=== PATIENT | female | born 1955 | race Caucasian/White ===

== ENCOUNTER 2020-01-04 13:22 | Emergency (ER) | payer OTHER, MEDICARE ==
[~2020-01-04] VITALS: Ht 172.7 cm; Wt 73.6 kg
[2020-01-04 13:25] VITALS: BP 110/92
[2020-01-04] MEDS ORDERED: LIDOcaine 1% 30ml preserv. free vial IJ ONE (13:50)
== END 2020-01-04 15:24 | disposition home or self-care (01) ==
LOC: ER 13:22
DX: S61.211A Laceration without foreign body of left index finger without damage to nail, initial encounter (principal); S61.213A Laceration without foreign body of left middle finger without damage to nail, initial encounter; S61.215A Laceration without foreign body of left ring finger without damage to nail, initial encounter; R20.0 Anesthesia of skin; R20.2 Paresthesia of skin; Z98.890 Other specified postprocedural states; Z88.5 Allergy status to narcotic agent; Z88.6 Allergy status to analgesic agent; Z94.0 Kidney transplant status; W26.8XXA Contact with other sharp object(s), not elsewhere classified, initial encounter; Y93.89 Activity, other specified; Y92.89 Other specified places as the place of occurrence of the external cause; Y99.8 Other external cause status
CPT/HCPCS: 12002; 73130; 99283

== ENCOUNTER 2020-01-14 08:28 | Emergency (ER) | payer MEDICARE, OTHER ==
[~2020-01-14] VITALS: Ht 172.7 cm; Wt 73.6 kg
== END 2020-01-14 09:47 | disposition home or self-care (01) ==
LOC: ER 08:29
DX: S61.211A Laceration without foreign body of left index finger without damage to nail, initial encounter (principal); S61.215A Laceration without foreign body of left ring finger without damage to nail, initial encounter; S61.213A Laceration without foreign body of left middle finger without damage to nail, initial encounter; Z48.02 Encounter for removal of sutures; Z88.5 Allergy status to narcotic agent
CPT/HCPCS: 29130; 99281; 99283

== ENCOUNTER 2021-11-10 07:49 | Inpatient (IN) | payer MEDICARE, OTHER ==
[~2021-11-10] VITALS: Ht 172.7 cm; Wt 81.4 kg
[2021-11-10] MEDS ORDERED: ondansetron/PF 4mg/2ml inj IV ONE (08:50)
[2021-11-10] MEDS ORDERED: piperacillin/tazo 3.375gm/50ml 50 ML IV ONE (08:50)
[2021-11-10] MEDS: morphine 4 MG/ML inj SYRINge IV PRN ×2 (09:14→16:55)
[2021-11-10 09:26] LABS: BASOPHILS % (AUTO) 0.3 % (0-1); EOSINOPHILS # (AUTO) 0.1 X10'3 (0-0.9); EOSINOPHILS % (AUTO) 0.6 % (0-6); HEMATOCRIT 41.3 % (35.0-45.0); HEMOGLOBIN 14.2 g/dl (12.0-16.0); LYMPHOCYTES # (AUTO) 1.6 X10'3 (1.1-4.8); LYMPHOCYTES % (AUTO) 18.2 % (21-51); MEAN CORPUSCULAR HEMOGLOBIN 30.6 PG (27.0-31.0); MEAN CORPUSCULAR HGB CONC 34.4 g/dL (33.0-36.5); MEAN PLATELET VOLUME 9.1 FL (7.4-10.4); MONOCYTES # (AUTO) 0.9 X10'3 (0-0.9); MONOCYTES % (AUTO) 10.1 % (2-12); NEUTROPHILS # (AUTO) 6.3 X10'3 (1.8-7.7); NEUTROPHILS % (AUTO) 70.8 % (42-75); PLATELET COUNT 263 X10'3 (140-440); RED BLOOD COUNT 4.64 X10'6 (4.20-5.60); RED CELL DISTRIBUTION WIDTH 13.3 % (11.5-14.5); WHITE BLOOD COUNT 8.9 X10'3 (4.5-11.0)
[2021-11-10 09:39] LABS: ALANINE AMINOTRANSFERASE 32 U/L (12-78); ALBUMIN 3.9 G/DL (3.4-5.0); ALBUMIN/GLOBULIN RATIO 0.9 (1.1-1.5); ALKALINE PHOSPHATASE 75 IU/L (46-116); ANION GAP 9 (8-16); ASPARTATE AMINO TRANSFERASE 22 U/L (10-37); BILIRUBIN,TOTAL 0.5 MG/DL (0.1-1.0); BLOOD UREA NITROGEN 21 MG/DL (7-18); BUN/CREATININE RATIO 20.6 (6.6-38.0); CHLORIDE 101 MMOL/L (99-107); CREATININE 1.02 MG/DL (0.40-0.90); GLUCOSE 104 MG/DL (70-104); POTASSIUM 3.6 MMOL/L (3.5-5.1); SODIUM 138 MMOL/L (135-145); TOTAL CARBON DIOXIDE 27.9 MMOL/L (24-32); TOTAL PROTEIN 8.1 G/DL (6.4-8.2); eGFR 54 ML/MIN
[2021-11-10] MEDS ORDERED: diphenhydrAMINE 25mg capsule PO PRN (12:55)
[2021-11-10] MEDS: normal saline 1000ml 1,000 ML IV SCH ×2 (12:55→23:01)
[2021-11-10] MEDS ORDERED: magnesium 4gm in 100ml NS 100 ML IV PRN (12:55)
[2021-11-10] MEDS ORDERED: bisacodyl 10mg suppository rectal RC PRN (12:55)
[2021-11-10] MEDS ORDERED: acetaminophen 325mg tablet PO PRN ×2 (12:55)
[2021-11-10] MEDS ORDERED: potassium CL 10mEq/100ml bag 100 ML IV PRN (12:55)
[2021-11-10] MEDS ORDERED: HYDROcodone/acetaminophen 5mg/325mg tablet PO PRN (12:55)
[2021-11-10] MEDS ORDERED: morphine 2 MG/ML inj. syringe IV PRN ×2 (12:55)
[2021-11-10] MEDS ORDERED: magnesium Cl slow-release 64mg tablet PO PRN (12:55)
[2021-11-10] MEDS ORDERED: acetaminophen 650mg rectal suppository RC PRN (12:55)
[2021-11-10] MEDS ORDERED: potassium Cl 20 mEq SR tablet PO PRN ×2 (12:55)
[2021-11-10] MEDS ORDERED: magnesium 2GM in 50ml NS 50 ML IV PRN (12:55)
[2021-11-10] MEDS ORDERED: mag hydrox/Alum hydrox/simeth 30ml oral suspension PO PRN (12:55)
[2021-11-10] MEDS ORDERED: magnesium hydroxide 30ml (MOM) UD suspension PO PRN (12:55)
[2021-11-10] MEDS ORDERED: AMOX1TAB15 PO (13:18)
[2021-11-10] MEDS ORDERED: CLIN300C71 PO (13:18)
[2021-11-10] MEDS ORDERED: HYDR25TA5 PO (13:18)
[2021-11-10] MEDS ORDERED: vancomycin/NS 1 GM ADD-VANTAGE 250 ML IV ONE (13:20)
[2021-11-10 14:03] LABS: HEMOGLOBIN A1C 5.6 % (4.5-6.2)
[2021-11-10] MEDS: piperacillin/tazo 3.375gm/50ml 50 ML IV SCH ×2 (16:24→23:22)
[2021-11-10] MEDS: ondansetron/PF 4mg/2ml inj IV PRN (16:28)
[2021-11-10 16:41] LABS: CLARITY,URINE CLEAR (Clear); COLOR,URINE YELLOW (Yellow); GLUCOSE, URINE NEGATIVE (Neg); KETONES,URINE NEGATIVE (Neg); LEUKOCYTE ESTERASE ,URINE NEGATIVE (Neg); NITRITES, URINE NEGATIVE (Neg); OCCULT BLOOD,URINE MODERATE (Neg); PROTEIN,URINE NEGATIVE (Neg); UROBILINOGEN,URINE 0.2 E.U/dL (0.2-1.0)
[2021-11-10 16:44] LABS: UA COLLECTION TYPE VOIDED
[2021-11-10 16:53] LABS: BACTERIA,URINE NONE SEEN /HPF (Neg); SQUAMOUS EPITHELIAL CELL,UR FEW /LPF (FEW); WBC,URINE NONE SEEN /HPF (0-4)
--- NOTE | 2021-11-10 17:27 | NUR ---
patient arrived via gurney, VS stable, alert and oriented, call light in reach, iv fluids running as ordered
[2021-11-10 17:30] VITALS: BP 136/63
[2021-11-10 18:00] VITALS: BP 155/66
--- NOTE | 2021-11-10 18:34 | NUR ---
Patient in room [facility]. I have received report from QING MELO and had the opportunity to ask questions and assume patient care.
[2021-11-10] MEDS: K and/or MAG REPLACEMENT MC SCH (19:33)
[2021-11-10] MEDS: docusate sod 100mg capsule PO SCH (20:27)
[2021-11-10] MEDS: heparin, porcine 5000 units/ml vial SQ SCH (20:32)
[2021-11-10 20:59] VITALS: BP 155/66
[2021-11-11] VITALS: BP 131/78
[2021-11-11] MEDS: HYDROcodone/acetaminophen 10/325mg tab PO PRN ×2 (00:09→09:02)
[2021-11-11] MEDS: VANCOMYCIN 1GM/200ML IVPB 200 ML IV SCH ×2 (01:35→13:23)
--- NOTE | 2021-11-11 06:27 | NUR ---
Problems reprioritized. Patient report given, questions answered & plan of care reviewed with CYNDY MELO.
[2021-11-11 06:42] LABS: BASOPHILS % (AUTO) 0.2 % (0-1); EOSINOPHILS % (AUTO) 0.2 % (0-6); HEMOGLOBIN 12.5 g/dl (12.0-16.0); LYMPHOCYTES # (AUTO) 1.1 X10'3 (1.1-4.8); LYMPHOCYTES % (AUTO) 13.2 % (21-51); MEAN CORPUSCULAR HGB CONC 34.6 g/dL (33.0-36.5); MEAN CORPUSCULAR VOLUME 89.4 FL (78-98); MEAN PLATELET VOLUME 9.3 FL (7.4-10.4); MONOCYTES # (AUTO) 0.7 X10'3 (0-0.9); MONOCYTES % (AUTO) 8.2 % (2-12); NEUTROPHILS # (AUTO) 6.6 X10'3 (1.8-7.7); NEUTROPHILS % (AUTO) 78.2 % (42-75); PLATELET COUNT 227 X10'3 (140-440); RED BLOOD COUNT 4.03 X10'6 (4.20-5.60); RED CELL DISTRIBUTION WIDTH 12.9 % (11.5-14.5); WHITE BLOOD COUNT 8.5 X10'3 (4.5-11.0)
--- NOTE | 2021-11-11 06:43 | NUR ---
Patient in room [facility] 358B. I have received report from KAMERON FALCON and had the opportunity to ask questions and assume patient care.
[2021-11-11 07:00] VITALS: BP 125/67
[2021-11-11 07:28] LABS: ALANINE AMINOTRANSFERASE 36 U/L (12-78); ALBUMIN 3.2 G/DL (3.4-5.0); ALBUMIN/GLOBULIN RATIO 0.9 (1.1-1.5); ALKALINE PHOSPHATASE 64 IU/L (46-116); ANION GAP 8 (8-16); ASPARTATE AMINO TRANSFERASE 22 U/L (10-37); BILIRUBIN,TOTAL 0.6 MG/DL (0.1-1.0); BLOOD UREA NITROGEN 18 MG/DL (7-18); CALCIUM 8.7 MG/DL (8.5-10.1); CHLORIDE 104 MMOL/L (99-107); CHOL/HDL RATIO 4.2 (0.00-4.99); CHOLESTEROL 172 MG/DL (0-200); GLUCOSE 116 MG/DL (70-104); HDL CHOLESTEROL 41 MG/DL (35-60); LDL CHOLESTEROL 107 MG/DL (50-100); MAGNESIUM 1.9 MG/DL (1.5-2.4); PHOSPHORUS 2.5 MG/DL (2.3-4.5); POTASSIUM 3.8 MMOL/L (3.5-5.1); SODIUM 140 MMOL/L (135-145); TOTAL CARBON DIOXIDE 28.2 MMOL/L (24-32); TOTAL PROTEIN 6.9 G/DL (6.4-8.2); TRIGLYCERIDES 89 MG/DL (20-135); eGFR 55 ML/MIN
[2021-11-11] MEDS: docusate sod 100mg capsule PO SCH ×2 (07:42→22:09)
[2021-11-11] MEDS: heparin, porcine 5000 units/ml vial SQ SCH ×2 (07:42→22:09)
[2021-11-11] MEDS: piperacillin/tazo 3.375gm/50ml 50 ML IV SCH ×2 (07:43→15:34)
[2021-11-11] MEDS: K and/or MAG REPLACEMENT MC SCH ×2 (08:00→20:00)
[2021-11-11] MEDS: normal saline 1000ml 1,000 ML IV SCH ×2 (08:55→21:53)
[2021-11-11] MEDS: ondansetron/PF 4mg/2ml inj IV PRN (11:55)
--- NOTE | 2021-11-11 12:00 | NUR ---
Patient in room [facility]. I have received report from SN Criss Fontana and had the opportunity to ask questions and assume patient care.
[2021-11-11 12:35] VITALS: BP 111/63
--- NOTE | 2021-11-11 16:25 | NUR ---
Charting by Justina GONZALEZ reviewed by Nini Hyman RN
--- NOTE | 2021-11-11 17:06 | NUR ---
Message: BINA RE:[id number]/ELSA PATIENT C/O BURNING WHEN VOIDING KAMERON NAYLOR [id number]
--- NOTE | 2021-11-11 18:26 | NUR ---
Problems reprioritized. Patient report given, questions answered & plan of care reviewed with KHUSHBU MELO.
[2021-11-11] MEDS ORDERED: iohexol 350MG/ML 100ml bottle IV ONE (20:06)
[2021-11-11 20:20] LABS: CLARITY,URINE CLEAR (Clear); COLOR,URINE YELLOW (Yellow); GLUCOSE, URINE NEGATIVE (Neg); KETONES,URINE NEGATIVE (Neg); LEUKOCYTE ESTERASE ,URINE NEGATIVE (Neg); NITRITES, URINE NEGATIVE (Neg); OCCULT BLOOD,URINE LARGE (Neg); PROTEIN,URINE NEGATIVE (Neg); UROBILINOGEN,URINE 0.2 E.U/dL (0.2-1.0)
[2021-11-11 20:25] LABS: UA COLLECTION TYPE NON-SPECIFIED
[2021-11-11 20:27] LABS: WBC,URINE 0-4 /HPF (0-4)
[2021-11-11 20:28] LABS: BACTERIA,URINE FEW /HPF (Neg); MUCUS STRANDS NONE SEEN /LPF (Neg); RBC,URINE 20-50 /HPF (0-2); SQUAMOUS EPITHELIAL CELL,UR FEW /LPF (FEW)
[2021-11-12] MEDS ORDERED: VANCOMYCIN LEVEL IV ONE (00:30)
[2021-11-12] MEDS: piperacillin/tazo 3.375gm/50ml 50 ML IV SCH ×2 (00:48→07:34)
[2021-11-12 01:00] LABS: BASOPHILS % (AUTO) 0.4 % (0-1); EOSINOPHILS # (AUTO) 0.1 X10'3 (0-0.9); EOSINOPHILS % (AUTO) 1.2 % (0-6); HEMOGLOBIN 11.5 g/dl (12.0-16.0); LYMPHOCYTES % (AUTO) 27.9 % (21-51); MEAN CORPUSCULAR HEMOGLOBIN 30.6 PG (27.0-31.0); MEAN CORPUSCULAR HGB CONC 34.8 g/dL (33.0-36.5); MEAN CORPUSCULAR VOLUME 88.2 FL (78-98); MONOCYTES # (AUTO) 0.7 X10'3 (0-0.9); MONOCYTES % (AUTO) 10.3 % (2-12); NEUTROPHILS # (AUTO) 4.4 X10'3 (1.8-7.7); NEUTROPHILS % (AUTO) 60.2 % (42-75); PLATELET COUNT 208 X10'3 (140-440); RED BLOOD COUNT 3.74 X10'6 (4.20-5.60); RED CELL DISTRIBUTION WIDTH 12.9 % (11.5-14.5); WHITE BLOOD COUNT 7.3 X10'3 (4.5-11.0)
[2021-11-12] MEDS: VANCOMYCIN 1GM/200ML IVPB 200 ML IV SCH (01:06)
[2021-11-12 01:10] LABS: ALANINE AMINOTRANSFERASE 54 U/L (12-78); ALBUMIN 3.1 G/DL (3.4-5.0); ALKALINE PHOSPHATASE 69 IU/L (46-116); ANION GAP 8 (8-16); ASPARTATE AMINO TRANSFERASE 32 U/L (10-37); BILIRUBIN,TOTAL 0.3 MG/DL (0.1-1.0); BLOOD UREA NITROGEN 16 MG/DL (7-18); CALCIUM 8.6 MG/DL (8.5-10.1); CHLORIDE 107 MMOL/L (99-107); CREATININE 0.94 MG/DL (0.40-0.90); GLUCOSE 108 MG/DL (70-104); MAGNESIUM 1.8 MG/DL (1.5-2.4); PHOSPHORUS 2.2 MG/DL (2.3-4.5); POTASSIUM 3.7 MMOL/L (3.5-5.1); SODIUM 140 MMOL/L (135-145); TOTAL CARBON DIOXIDE 24.8 MMOL/L (24-32); TOTAL PROTEIN 6.1 G/DL (6.4-8.2); VANCOMYCIN,TROUGH 12.3 UG/ML (6.0-14.0); eGFR 59 ML/MIN
[2021-11-12] MEDS: normal saline 1000ml 1,000 ML IV SCH (04:55)
--- NOTE | 2021-11-12 06:34 | NUR ---
REPORT GIVEN TO CYNDY.
[2021-11-12] MEDS: heparin, porcine 5000 units/ml vial SQ SCH (07:28)
[2021-11-12] MEDS: docusate sod 100mg capsule PO SCH (07:28)
[2021-11-12 08:00] VITALS: BP 129/60
[2021-11-12] MEDS: K and/or MAG REPLACEMENT MC SCH (08:00)
[2021-11-12] MEDS ORDERED: HYDROchlorothiazide 25mg tablet PO SCH (08:00)
[2021-11-12] MEDS ORDERED: LINE600T12 PO (12:14)
[2021-11-12] MEDS ORDERED: HYDR-3965 PO (12:14)
[2021-11-12 12:23] VITALS: BP 126/61
[2021-11-12] MEDS ORDERED: VANCOmycin 1250MG/NS 250ml Bag 250 ML IV SCH (13:00)
--- NOTE | 2021-11-12 13:09 | NUR ---
PATIENT DISCHARGED HOME AAOX3. NO DISTRESS NOTED AT THIS TIME.
[2021-11-14] MEDS ORDERED: VANCOMYCIN LEVEL IV ONE (00:30)
== END 2021-11-12 13:02 | disposition home or self-care (01) | DRG 603 ==
LOC: ER 07:49 → ED HOLD 12:58 → EDBEDREQ 13:51 → SUR 3N 17:31
PROVIDERS: ADMIT Family Medicine; ATTEND Family Medicine
PROC: B42G1ZZ Computerized Tomography (CT Scan) of Left Lower Extremity Arteries using Low Osmolar Contrast (ICD-10-PCS; principal; 2021-11-11)
DX: L03.116 Cellulitis of left lower limb (principal); I10 Essential (primary) hypertension; Z88.5 Allergy status to narcotic agent
CPT/HCPCS: 36415; 73706; 80053; 80061; 80202; 81001; 83036; 83605; 83735; 84100; 84145; 85025; 87040; 96361; 96365; 96375; 97116; 97161; 97530; 99285; G0378; J1644; J2270; J2405; J2543; J3370; J7030; Q9967

== ENCOUNTER 2024-10-15 09:48 | Emergency (ER) | payer MEDICARE, OTHER ==
[~2024-10-15] VITALS: Ht 170.2 cm; Wt 80.5 kg
[~2024-10-15 09:48] MED LIST: HYDR25TA5 PO
[2024-10-15 09:59] VITALS: TEMP 97.9
[2024-10-15] MEDS ORDERED: HYDR-3965 PO (11:18)
[2024-10-15] MEDS ORDERED: METH-797 PO (11:18)
[2024-10-15] MEDS: HYDROcodone/acetaminophen 5mg/325mg tablet PO ONE (11:29)
[2024-10-15 11:47] VITALS: BP 157/58; PULSE 78; RESP 18; O2SAT 98
== END 2024-10-15 11:40 | disposition home or self-care (01) ==
LOC: ER 09:48
DX: S30.0XXA Contusion of lower back and pelvis, initial encounter (principal); Z88.5 Allergy status to narcotic agent; Z88.6 Allergy status to analgesic agent; Z79.899 Other long term (current) drug therapy; W11.XXXA Fall on and from ladder, initial encounter; Y93.89 Activity, other specified; Y92.89 Other specified places as the place of occurrence of the external cause; Y99.8 Other external cause status
CPT/HCPCS: 72100; 99284